=== PATIENT | male | born 1955 | race Caucasian/White ===

== ENCOUNTER → 2020-09-18 10:34 | Outpatient (CLI) | payer MEDICARE, OTHER, SELFPAY ==
--- NOTE | 2020-09-18 | DI.CT.S_ITS ---
PROCEDURE: CT ABDOMEN PELVIS WO CON INDICATIONS: Calculus of kidney TECHNIQUE: Noncontrast 5 mm thick sections acquired from the diaphragms to the symphysis. 5 mm thick coronal and sagittal reformats were then performed. For radiation dose reduction, the following was used: automated exposure control, adjustment of mA and/or kV according to patient size. COMPARISON: None. FINDINGS: Image quality: Excellent. Lung bases: Lung bases are clear. Heart size is normal. Urinary system: Right kidney: 3 mm nonobstructing upper pole stone. 2 separate nonobstructing lower pole stones, the larger of which measures 5 mm in maximum diameter. No hydronephrosis. Right ureter: Unremarkable Left kidney: Vague calyceal calcifications, likely representing very tiny stones. No hydronephrosis. Left ureter: Unremarkable Bladder: No bladder stones. No bladder wall thickening. Other solid organs: Liver is normal in size. Gallbladder is unremarkable. Pancreas is normal in contours. Spleen is normal in size. No adrenal nodules. Peritoneum and bowel: Unenhanced bowel loops demonstrate normal wall thickness and caliber. No free fluid or air. Nodes and vessels: No retroperitoneal or mesenteric adenopathy by size criteria. Aorta and inferior vena cava are normal in caliber. Abdominal wall: No ventral hernias. Pelvis: No free pelvic fluid. No inguinal hernias or adenopathy. Benign appearing cystic lesion of the right iliopsoas muscle anterior to the right femoral head, measuring 3.9 cm in maximum diameter. Bones: No suspicious bony lesions. No vertebral body compression fractures. IMPRESSION: 1. Bilateral nephrolithiasis. 2. No ureteral stone, no hydronephrosis. 3. Incidental benign-appearing cystic lesion of the right ileo psoas muscle at the hip. Dictated by: Trenton Sanders M.D. on 09/18/2020 at 11:15 Approved by: Trenton Sanders M.D. on 09/18/2020 at 11:22
== END ==
PROVIDERS: PCP Physician Assistant; Referring Provider Physician Assistant; Visit Provider Physician Assistant
DX: N20.0 Calculus of kidney (principal); M62.89 Other specified disorders of muscle
CPT/HCPCS: 74176

== ENCOUNTER → 2020-11-13 12:34 | Outpatient (CLI) | payer MEDICARE, OTHER, SELFPAY ==
--- NOTE | 2020-11-13 | DI.US.S_ITS ---
PROCEDURE: US RENAL COMPLETE INDICATIONS: ACQUIRED KIDNEY CYST TECHNIQUE: Real-time scanning was performed of the kidneys and bladder, with image documentation. COMPARISON: [facility], CT, CT ABDOMEN PELVIS WO CON, 09/18/2020, 10:43. FINDINGS: Kidneys: Kidneys are normal in size. Right kidney measures 9.9 cm long; left kidney measures 9.4 cm long. Right renal cortical thickness is 1.3 cm; left renal cortical thickness is 1.2 cm. Renal cortical echotexture is normal. No hydronephrosis but there is bilateral nephrolithiasis comprised of punctate 1-1.5 mm calculi seen at the middle and lower thirds of the left kidney with slight shadowing, and also a 3 x 4 mm shadowing calculus, nonobstructive, at the lower 3rd collecting system of the right kidney there is a simple appearing right renal cortical cyst at the junction of the middle and upper thirds, measuring 1.8 x 1.9 x 1.9 cm. This is simple in character. . No suspicious solid mass lesions. Bladder: Pre-void bladder volume is 579 mL. Post-void residual is 11 mL. Pre-void images demonstrate no intraluminal masses or stones. On pre-void images, bilateral ureteral jets are noted with color Doppler interrogation. (Of note, ureteral jets may not be detectable in up to 25% of cases due to insufficient differences in specific gravity between ureteral and bladder urine). Miscellaneous: No free pelvic fluid. Assessment of the cystic structure is in to the hip joint, and statistically this most likely represents a synovial protrusion related to the right hip. IMPRESSION: Several punctate calculi are seen at each kidney, and the largest calculus measures 3 x 4 mm at the lower 3rd collecting system the right kidney, nonobstructive. Hydronephrosis is not seen at either kidney. Normal bladder function. Dictated by: Sushant Sevilla M.D. on 11/13/2020 at 15:33 Approved by: Sushant Sevilla M.D. on 11/13/2020 at 15:41
== END ==
PROVIDERS: PCP Physician Assistant; Referring Provider Urology; Visit Provider Urology
DX: N28.1 Cyst of kidney, acquired (principal); N20.0 Calculus of kidney
CPT/HCPCS: 76770

== ENCOUNTER → 2021-12-31 11:28 | Outpatient (CLI) | payer MEDICARE, OTHER, SELFPAY ==
[2021-12-31 22:59] LABS: Cholesterol 171 mg/dL (140-199); HDL Cholesterol 49 mg/dL (40-60); LDL Cholesterol Calculated 105 mg/dL (<100); Triglycerides 84 mg/dL (35-150)
[2021-12-31 23:30] LABS: Prostate Specific Antigen Scrn 1.13 ng/mL (0.1-4.0)
[2022-01-01 16:26] LABS: Hep C Virus Ab w/Reflex Quant NEGATIVE s/c (NEGATIVE)
== END ==
PROVIDERS: PCP Family Medicine; Visit Provider Family Medicine
DX: Z12.5 Encounter for screening for malignant neoplasm of prostate (principal); E78.5 Hyperlipidemia, unspecified; Z11.59 Encounter for screening for other viral diseases; Z12.11 Encounter for screening for malignant neoplasm of colon; Z13.1 Encounter for screening for diabetes mellitus
CPT/HCPCS: 80061; 86803; G0103

== ENCOUNTER → 2024-06-22 10:07 | Outpatient (CLI) | payer MEDICARE, OTHER, SELFPAY ==
[2024-06-22 20:40] LABS: Add Manual Diff / Slide Review NO; Basophils Absolute Auto 0 /uL (0-100); Basophils Percent Auto 0.5 % (0-2); Eosinophils Absolute Auto 100 /uL (0-450); Eosinophils Percent Auto 2.4 % (2-4); Hematocrit 41.6 % (41-53); Lymphocytes Absolute Auto 1400 /uL (1100-4500); Lymphocytes Percent Auto 25.5 % (25-40); Mean Corpuscular HGB Conc 33.6 % (30-36); Mean Corpuscular Hemoglobin 28.9 PG (26-34); Monocytes Absolute Auto 300 /uL (0-900); Monocytes Percent Auto 5.6 % (3-14); Neutrophils Absolute Auto 3600 /uL (1500-7000); Platelet Count 256 X10^3/uL (150-400); Red Blood Cell Count 4.84 X10^6/uL (4.5-5.9); Red Cell Distribution Width 13.1 % (11.6-14.8); White Blood Cell Count 5.5 X10^3/uL (4.5-11.0)
[2024-06-22 20:48] LABS: BUN Creatinine Ratio 26.9 (6-22); Blood Urea Nitrogen 18 mg/dL (9-20); Carbon Dioxide 33 mmol/L (22-32); Chloride 101 mmol/L (98-107); Cholesterol 203 mg/dL (140-199); Estimated Glomerular Filt Rate > 60 mL/min (>60); Glucose 101 mg/dL (80-110); HDL Cholesterol 59 mg/dL (40-60); HEMOLYSIS 23 (0-50); LDL Cholesterol Calculated 132 mg/dL (<100); Sodium 137 mmol/L (137-145); Triglycerides 60 mg/dL (35-150)
[2024-06-22 21:16] LABS: Prostate Specific Antigen Scrn 1.57 ng/mL (0.1-4.0)
== END ==
PROVIDERS: PCP Family Medicine; Referring Provider Family Medicine; Visit Provider Family Medicine
DX: E78.2 Mixed hyperlipidemia (principal); Z12.5 Encounter for screening for malignant neoplasm of prostate; M16.12 Unilateral primary osteoarthritis, left hip; Z13.6 Encounter for screening for cardiovascular disorders; Z13.220 Encounter for screening for lipoid disorders; Z13.1 Encounter for screening for diabetes mellitus
CPT/HCPCS: 80048; 80061; 85025; G0103